=== PATIENT | female | born 1955 | race Caucasian/White ===

== ENCOUNTER 2019-01-15 07:28 | Day surgery (SDC) | payer OTHER ==
[~2019-01-15 07:28] MED LIST: Ropivacaine 49.25 ML, Ketorolac 30 MG, EPINEPHrine 0.5 MG, cloNIDine 80 MCG, Sodium Chl... INJECT SCH; Scopolamine 1.5 MG Transdermal Patch ONE
[2019-01-15] MEDS ORDERED: ePHEDrine 50 MG/ML SDV IV ONE (07:29)
[2019-01-15] MEDS ORDERED: Midazolam 1 MG/ML 2 ML SDV IV ONE (07:29)
[2019-01-15] MEDS ORDERED: fentaNYL 100 MCG/2 ML SDV IV ONE (07:29)
[2019-01-15] MEDS ORDERED: Propofol 200 MG/20 ML SDV IV ONE (07:29)
[2019-01-15] MEDS ORDERED: Ondansetron 4 MG/2 ML SDV IVPUSH ONE (07:29)
[2019-01-15] MEDS ORDERED: Ropivacaine 0.5% 5 MG/ML 30 ML SDV NERVRT ONE (07:29)
[2019-01-15] MEDS ORDERED: Lidocaine 2% 100 MG/5 ML Syringe IVPUSH ONE (07:29)
[2019-01-15] MEDS ORDERED: Lactated Ringers 1,000 ML IV ONE (07:29)
[2019-01-15] MEDS ORDERED: Lactated Ringers 1,000 ML IV SCH (07:30)
[2019-01-15] MEDS ORDERED: Scopolamine 1.5 MG Transdermal Patch TRDERM ONE (07:35)
[2019-01-15] MEDS ORDERED: Gabapentin 300 MG Cap PO ONE (08:00)
[2019-01-15] MEDS ORDERED: Acetaminophen 500 MG Tab PO ONE (08:00)
[2019-01-15] MEDS ORDERED: ceFAZolin 2 GM in Premix Bag 1 BAG IV ONE (08:45)
[2019-01-15] MEDS ORDERED: Ropivacaine 49.25 ML, Ketorolac 30 MG, EPINEPHrine 0.5 MG, cloNIDine 80 MCG, Sodium Chl... INJECT SCH ×5 (08:45)
[2019-01-15] MEDS ORDERED: Tranexamic Acid 3,000 MG, Sodium Chloride 0.9% 100 ML IRR ONE ×2 (09:00)
--- NOTE | 2019-01-15 10:23 | PCM.OPNOTE ---
- General Post-Op/Procedure Note Date of Surgery/Procedure: 01/15/19 Operative Procedure(s): left medial pka Pre Op Diagnosis: left knee primary oa Post-Op Diagnosis: same Anesthesia Technique: Combo Spinal/Epidural, MAC Primary Surgeon: Nayan Manley Anesthesia Provider: Fernando Thomson Price Clerk: Halina Edwards EBL in mLs: 50 Complications: none Condition: Good
[2019-01-15] MEDS ORDERED: Naloxone 0.4 MG/ML SDV IVPUSH PRN (10:49)
[2019-01-15] MEDS ORDERED: Bisacodyl 5 MG Tab PO PRN (10:49)
[2019-01-15] MEDS ORDERED: Ondansetron 4 MG/2 ML SDV IVPUSH PRN (10:49)
[2019-01-15] MEDS ORDERED: Sennosides 8.6 MG Tab PO PRN (10:49)
[2019-01-15] MEDS ORDERED: Magnesium Hydroxide 400 MG/5 ML Susp 30 ML Cup PO PRN (10:49)
[2019-01-15] MEDS ORDERED: diphenhydrAMINE 50 MG/ML SDV IVPUSH PRN (10:49)
[2019-01-15] MEDS ORDERED: traMADol 50 MG Tab PO PRN (10:49)
[2019-01-15] MEDS ORDERED: Morphine 2 MG/ML Syringe IVPUSH PRN (10:49)
[2019-01-15] MEDS ORDERED: Docusate Sodium 100 MG Cap PO PRN (10:49)
[2019-01-15] MEDS ORDERED: Zolpidem 5 MG Tab PO PRN (10:49)
--- NOTE | 2019-01-15 11:56 | PCM.SN ---
- Free Text/Narrative Note: ANESTHESIA ACUTE PAIN SERVICE Date: 01/15/2019 Time: 1111 to 1122 Preoperative Dx: Left Knee DJD with Pain Postoperative Rx: Left Partial Knee Arthroplasty Surgeon and the Patient are requesting postoperative pain control. Procedure: Left Adductor Canal Block with Ultrasound [U/S] Guidance in PACU. Risks and benefits discussed with her and her including block failure. They wish to proceed and a consent, after all questions were answered, was obtained. Monitors: NIBP, HR, and SpO2. Vitals: See nursing notes. Sedation: None. She was completely awake and alert throughout the procedure. She is supine with her left leg in a frog-leg position. Preprocedure U/S scan was done locating the left Femoral Artery and the Sortorius Muscle. I then prepped the insertion site with a single ChloraPrep swab and allowed it to dry. The spinal was still working so no skin infiltration was needed. Using the U/S , under direct visualization of the 20 G 4" Stimuplex Ultra 360 Insulated Echogenic Needle, I inserted it and followed the needle to a good position next to the Femoral Artery and below the Sartorius. The depth measured 5-6 cm. Under U/S visualization, the injection of 20 ml's of .5% Naropin was given in divided doses with negative aspiration for blood. She tolerated this well with no local complications. She is having bilateral gross leg movements with no pain in the left knee. The spinal is resolving quickly. Documentation: Please see the PAC System for images in Radiology. Thank you. JOSE ALBERTO Xiong CRNA
[2019-01-15] MEDS: Ketorolac 30 MG/ML SDV IVPUSH SCH ×2 (12:38→19:36)
[2019-01-15] MEDS: Sodium Chloride 0.9% 10 ML Syringe FLUSH PRN ×4 (12:45→19:41)
--- NOTE | 2019-01-15 13:04 | CR ---
INDICATION: Postop. LEFT KNEE: Frontal and lateral views of the left knee were obtained postop, 05/28, and compared with 06/02/18 preop, revealing interval placement of a medial hemiarthroplasty, which appears to be in good position and alignment, without evidence of a complicating process. Typical air is noted in the joint space. Skin clips are noted anteriorly. IMPRESSION: Satisfactory appearance postop medial hemiarthroplasty left knee. JACQUES
--- NOTE | 2019-01-15 15:18 | US ---
INDICATION: Vascular guidance for abductor canal nerve block. ULTRASOUND GUIDANCE FOR ABDUCTOR CANAL NERVE BLOCK: Ultrasonic images times two were obtained for localization for abductor canal nerve block in the left mid thigh. MTDD
--- NOTE | 2019-01-15 16:13 | OR ---
DATE OF OPERATION: 01/15/2019 SURGEON: Nayan Manley DO PREOPERATIVE DIAGNOSIS: Left knee primary osteoarthritis. POSTOPERATIVE DIAGNOSIS: Left knee primary osteoarthritis. PROCEDURE: Left knee partial knee arthroplasty, medial compartment. MELTING FURNACE SKIMMER: Halina Edwards NP. Nurse practitioner, Halina Edwards NP, played an essential role in assisting in this case, helping to position the patient, retract structures as needed, as well as suturing and cutting sutures as indicated. Her presence improved patient's safety and decreased operative time. ANESTHESIA: Spinal plus conscious sedation. FLUID: Lactated Ringer's solution. ESTIMATED BLOOD LOSS: 50 mL. COMPLICATIONS: None. SPECIMEN: None. DISCHARGE DISPOSITION: Stable to PACU. INSTRUMENTATION: DePuy Sigma knee with size-3 femoral component, size-3 tibia, and size-3 7-mm polyethylene insert. INDICATION FOR THE PROCEDURE: The patient is well known to me. She had failed nonoperative treatment. She had [id number] deformity, which was confirmed on radiographs. Risks and benefits of the procedure were explained to the patient and informed consent was obtained. DETAILS OF PROCEDURE: The patient was seen preoperatively by myself and the Anesthesia staff in the preoperative holding area, where the operative site was marked. She was brought to the operative suite by the Anesthesia staff, where spinal sedation plus conscious sedation were administered. A sterile Carbone was placed. A well-padded tourniquet was placed on the left thigh. All extremities were found to be well padded. The right lower extremity was placed into a stirrup. The left lower extremity was slightly flexed and placed into a thigh masterson. The left lower extremity was then prepped and draped in a sterile manner. Time-out was called identifying the correct patient, the correct procedure, the correct site, and that antibiotics had been begun within appropriate period of time. An incision was made medial to the superior pole of the patella, going down to the medial aspect of the tibial tubercle. A medial parapatellar arthrotomy was then made. Bleeding was controlled with Bovie electrocautery. Gelpis were used for retraction. The medial proximal tibia was then exposed using Bovie electrocautery. Infrapatellar fat pad was removed. The anterior portion of the medial meniscus was removed. An extramedullary tibial guide with 2-mm stylus setting was used, and the guide was pinned in place. A vertical cut was made in line with the ASIS on the medial side of the medial tibial spine and carried to the back of the proximal tibia. I then made my horizontal cut using a saw and then protecting the medial collateral ligament with a sharp Hohmann at all times. We then removed the guide and then used an osteotome to remove the proximal tibia fragment, which measured to 4. I then was able to insert a #7 LolliPOP in both flexion and extension. Then, I was able to max the midline of the distal femur using the LolliPOP. We then brought the knee out in extension and used my distal femoral cutting guide, pinned this in place and made my distal femoral cut. I then removed that distal femoral bone that had been cut and then applied a #3 cutting guide. I had marked the midline in flexion and extension. I pinned this in place and then made my three cuts. After this had been accomplished, I placed my #3 trial, which appeared to be in good position. I then removed the #3 trial and then applied my tibial fin cutter. I then pinned this in place and then kept in place with a lamina alarm signal operator and then gouged out my fin. I confirmed that this was appropriately gouged using a hockey-stick apparatus and then drilled my lugs. Please note, I also drilled my lugs for my femoral component for that to fit into. I then removed all of my components and then copiously irrigated with saline and placed some TXA. I then cemented all of my components in place and, while cementing, I placed a 3-mm LolliPOP. I did end up using a 3 tibia because I thought the 4 was too wide. After cement had dried, I let down the tourniquet to 42 minutes. The tourniquet was placed up during the beginning of the case. The tourniquet was raised to 300 mmHg, after exsanguinating the left lower extremity. Continuing on, after the cement had dried and I took care of any extra cement that was present and irrigated, I placed my final polyethylene insert, which was a size-3 7 mm. This provided excellent stability throughout range of motion. We then placed some more TXA and then applied our periarticular injection and then irrigated with Betadine-infused irrigation. We placed two #5 [id number] Ethibond sutures proximal and distal to the patella, followed by #1 STRATAFIX through the parapatellar arthrotomy, followed by a #1 STRATAFIX subcutaneous suture, followed by skin josh, followed by Betadine-soaked Adaptic dressing, sterile sponges, and Delano wrap. The patient was then allowed to awaken from conscious sedation and transferred to the PACU in a stable condition. /[id number] SEEMA/LESLY
[2019-01-15] MEDS: Acetaminophen/oxyCODONE 325-5 MG Tab PO PRN (16:19)
[2019-01-15] MEDS: ceFAZolin 2 GM in Premix Bag 1 BAG IV SCH (16:32)
[2019-01-15] MEDS: Famotidine 20 MG Tab PO SCH (21:01)
[2019-01-16] MEDS: ceFAZolin 2 GM in Premix Bag 1 BAG IV SCH ×2 (01:14→10:00)
[2019-01-16] MEDS: Acetaminophen/oxyCODONE 325-5 MG Tab PO PRN ×3 (01:15→12:10)
[2019-01-16] MEDS: Sodium Chloride 0.9% 10 ML Syringe FLUSH PRN ×2 (07:59→10:00)
[2019-01-16] MEDS: Famotidine 20 MG Tab PO SCH (08:01)
--- NOTE | 2019-01-16 08:57 | PCM.DCSUM1 ---
Discharge Summary - Hospital Course HPI Initial Comments: 63 yo female left knee primary oa Diagnosis: Stroke: No - Discharge Data Discharge Date: 01/16/19 Discharge Disposition: Home, Self-Care 01 Condition: Good - Discharge Diagnosis/Problem(s) (1) Primary osteoarthritis of left knee SNOMED Code(s): 293593799282654, [id number] ICD Code: M17.12 - UNILATERAL PRIMARY OSTEOARTHRITIS, LEFT KNEE Status: Acute Current Visit: Yes - Patient Summary/Data Operative Procedure(s) Performed: left medial pka Complications: none Consults: Consultations 01/15/19 10:49 Respiratory Care Assess and Treatment [CONS] Routine Comment: Physician Instructions: Post-op Pneumonia Prevention 01/15/19 15:00 OT Evaluation and Treatment [CONS] Routine Please Evaluate and Treat. OT Reason for Consult: Strengthening This query below is only for informational purposes and is not editable. Admission Diagnosis/Problem: Knee joint operation PT Evaluation and Treatment [CONS] Routine Please Evaluate and Treat. PT Reason for Consult: Strengthening This query below is only for informational purposes and is not editable. Admission Diagnosis/Problem: Knee joint operation - Patient Instructions Diet: Usual Diet as Tolerated Activity: Apply Ice, As Tolerated, Full Weight Bearing, No Strenuous Activities Driving: Do Not Drive Showering/Bathing: May Shower Wound/Incision Care: Keep Operative Site/Wound Site Clean and Dry Wound/Incision, Other: remove aquacell dressing on Tuesday, then clean dressing daily Notify Provider of: Fever, Increased Pain, Swelling and Redness, Drainage, Nausea and/or Vomiting - Discharge Plan *PRESCRIPTION DRUG MONITORING PROGRAM REVIEWED*: Yes *COPY OF PRESCRIPTION DRUG MONITORING REPORT IN PATIENT SHOAIB: No Prescriptions/Med Rec: Acetaminophen/oxyCODONE [Percocet 325-5 MG] 1 tab PO Q6HR PRN #56 tablet PRN Reason: Pain (Moderate 4-6) Aspirin [Ecotrin] 325 mg PO DAILY #21 tab.ec Home Medications: Home Meds Acetaminophen/oxyCODONE [Percocet 325-5 MG] 1 tab PO Q6HR PRN #56 tablet [Rx] Aspirin [Ecotrin] 325 mg PO DAILY #21 tab.ec 01/16/19 [Rx] Oxygen Therapy Mode: Room Air Patient Handouts: Total Knee Replacement, Care After, [id number], Fall Prevention in Hospitals, Adult, Venous Thromboembolism Prevention, Community- Acquired Pneumonia, Adult, [id number] Referrals: Nayan Manley DO [Physician] - 02/07/19 9:15 am () - Discharge Summary/Plan Comment DC Time >30 min.: No - General Info Date of Service: 01/16/19 Functional Status: Reports: Pain Controlled, Tolerating Diet, Ambulating, Urinating - Review of Systems General: Reports: No Symptoms HEENT: Reports: No Symptoms Pulmonary: Reports: No Symptoms Cardiovascular: Reports: No Symptoms Gastrointestinal: Reports: No Symptoms Genitourinary: Reports: No Symptoms Musculoskeletal: Reports: Leg Pain, Joint Pain, Joint Swelling Skin: Reports: No Symptoms Neurological: Reports: No Symptoms Psychiatric: Reports: No Symptoms - Patient Data Vitals - Most Recent: Last Vital Signs Temp 97.5 F 01/16/19 07:20 Pulse 55 L 01/16/19 07:20 Resp 18 01/16/19 07:20 BP 112/62 01/16/19 07:20 Pulse Ox 96 01/16/19 07:20 Weight - Most Recent: 195 lb I&O - Last 24 hours: Intake & Output 01/15/19 01/16/19 01/16/19 22:59 06:59 14:59 Intake Total 1850 50 200 Output Total 975 350 Balance 875 -300 200 Lab Results - Last 24 hrs: Laboratory Results - last 24 hr 01/16/19 01/16/19 Range/Units 05:55 05:55 WBC 7.7 (4.5-12.0) X10-3/uL RBC 4.01 (3.23-5.20) x10(6)uL Hgb 12.7 (11.5-15.5) g/dL Hct 37.1 (30.0-51.3) % MCV 92.6 (80-96) fL MCH 31.7 (27.7-33.6) pg MCHC 34.2 (32.2-35.4) g/dL RDW 12.2 (11.5-15.5) % Plt Count 159 (125-369) X10(3)uL MPV 9.1 (7.4-10.4) fL Neut % (Auto) 57.6 (46-82) % Lymph % (Auto) 31.7 (13-37) % [place] % (Auto) 8.9 (4-12) % Eos % (Auto) 2 (1.0-5.0) % Baso % (Auto) 0 (0-2) % Neut # (Auto) 4.4 (1.6-8.3) # Lymph # (Auto) 2.5 (0.6-5.0) # [place] # (Auto) 0.7 (0.0-1.3) # Eos # (Auto) 0.1 (0.0-0.8) # Baso # (Auto) 0.0 (0.0-0.2) # Sodium 142 (135-145) mmol/L Potassium 4.0 (3.5-5.3) mmol/L Chloride 105 (100-110) mmol/L Carbon Dioxide 28 (21-32) mmol/L BUN 10 (7-18) mg/dL Creatinine 0.9 (0.55-1.02) mg/dL Est Cr Clr Drug Dosing 50.60 mL/min Estimated GFR (MDRD) > 60 (>60) BUN/Creatinine Ratio 11.1 (9-20) Glucose 94 (80-116) mg/dL Calcium 8.6 (8.6-10.2) mg/dL Total Bilirubin 0.4 (0.1-1.3) mg/dL AST 33 H (5-25) IU/L ALT 48 H (12-36) U/L Alkaline Phosphatase 38 L (56-112) IU/L Total Protein 6.4 (6.0-8.0) g/dL Albumin 3.1 L (3.2-4.6) g/dL Globulin 3.3 g/dL Albumin/Globulin Ratio 0.9 Med Orders - Current: Current Medications Aspirin (Ecotrin) 325 mg PO DAILY [facility] Last Admin: 01/16/19 08:02 Dose: 325 mg Bisacodyl (Dulcolax) 10 mg PO DAILY PRN PRN Reason: Constipation Diphenhydramine HCl (Benadryl) 25 mg IVPUSH Q4H PRN PRN Reason: Itching Docusate Sodium (Colace) 100 mg PO BID PRN PRN Reason: Constipation Famotidine (Pepcid) 20 mg PO BID [facility] Last Admin: 01/16/19 08:01 Dose: 20 mg Cefazolin Sodium/Dextrose 2 gm (/ Premix) 50 mls @ 100 mls/hr IV Q8H HUGO Stop: 01/16/19 09:29 Last Admin: 01/16/19 01:14 Dose: 100 mls/hr Magnesium Hydroxide (Milk Of Magnesia) 30 ml PO BID PRN PRN Reason: Constipation Morphine Sulfate (Morphine) 2 mg IVPUSH Q2H PRN PRN Reason: Breakthrough Pain Naloxone HCl (Narcan) 0.1 mg IVPUSH ONETIME PRN PRN Reason: Oversedation Ondansetron HCl (Zofran) 4 mg IVPUSH Q4H PRN PRN Reason: Nausea/Vomiting Last Admin: 01/16/19 07:59 Dose: 4 mg Oxycodone/Acetaminophen (Percocet 325-5 Mg) 2 tab PO Q4H PRN PRN Reason: Pain (moderate 4-6) Last Admin: 01/16/19 05:56 Dose: 2 tab Senna (Senna) 8.6 mg PO BID PRN PRN Reason: Constipation Sodium Chloride (Saline Flush) 10 ml FLUSH ASDIRECTED PRN PRN Reason: Keep Vein Open Last Admin: 01/16/19 07:59 Dose: 10 ml Tramadol HCl (Ultram) 100 mg PO Q6H PRN PRN Reason: Pain (mild 1-3) Zolpidem Tartrate (Ambien) 5 mg PO BEDTIME PRN PRN Reason: Sleep Discontinued Medications Acetaminophen (Tylenol Extra Strength) 1,000 mg PO ONETIME ONE Stop: 01/15/19 08:01 Last Admin: 01/15/19 08:29 Dose: 1,000 mg Ropivacaine 49.25 ml/Ketorolac Tromethamine 30 mg/Epinephrine HCl 0.5 mg/ Clonidine HCl 80 mcg/ Sodium Chloride 48.45 ml 0 ml INJECT ASDIRECTED HUGO Stop: 01/15/19 10:00 Last Admin: 01/15/19 09:35 Dose: 100 syringe Tranexamic Acid 3,000 mg/ (Sodium Chloride 100 ml) 0 mg IRR ONETIME ONE Stop: 01/15/19 09:01 Last Admin: 01/15/19 09:38 Dose: 100 irr Gabapentin (Neurontin) 300 mg PO ONETIME ONE Stop: 01/15/19 08:01 Last Admin: 01/15/19 08:29 Dose: 300 mg Cefazolin Sodium/Dextrose 2 gm (/ Premix) 50 mls @ 100 mls/hr IV ONETIME ONE Stop: 01/15/19 09:14 Last Admin: 01/15/19 08:41 Dose: 100 mls/hr Lactated Ringer's (Ringers, Lactated) 1,000 mls @ 125 mls/hr IV ASDIRECTED [facility] Last Admin: 01/15/19 08:25 Dose: 125 mls/hr Ketorolac Tromethamine (Toradol) 30 mg IVPUSH Q8H [facility] Stop: 01/15/19 19:31 Last Admin: 01/15/19 19:36 Dose: 30 mg Scopolamine (Transderm-Scop) Confirm Administered Dose 1.5 mg .ROUTE .STK-MED ONE Stop: 01/15/19 07:27 Last Admin: 01/15/19 07:37 Dose: Not Given Scopolamine (Transderm-Scop) 1.5 mg TRDERM ONETIME ONE Stop: 01/15/19 07:36 Last Admin: 01/15/19 08:26 Dose: 1.5 mg - Exam General: Reports: Alert, Oriented, Cooperative, Mild Distress HEENT: Reports: Pupils Equal, Pupils Reactive, Mucous Membr. Moist/[place] Neck: Reports: Supple, Trachea Midline Lungs: Reports: Clear to Auscultation, Normal Respiratory Effort Extremities: Joint Swelling, Leg Pain, Limited Range of Motion Skin: Reports: Warm, Dry, Intact Wound/Incisions: Reports: Healing Well, Drainage Neurological: Reports: No New Focal Deficit Psy/Mental Status: Reports: Alert, Normal Affect, Normal Mood Discharge Operative/Procedures - Procedures Performed Operations: left medial pka
[2019-01-16] MEDS ORDERED: Aspirin 325 MG Tab.EC PO SCH (09:00)
== END 2019-01-16 13:00 | disposition home or self-care (01) ==
LOC: FB.SDS 07:28 → FB.MS 11:30 → FB.SDS 01-16 13:00
PROVIDERS: ATTEND Orthopaedic Surgery
DX: M17.12 Unilateral primary osteoarthritis, left knee (principal); E66.9 Obesity, unspecified; Z68.35 Body mass index [BMI] 35.0-35.9, adult; E78.2 Mixed hyperlipidemia; K21.9 Gastro-esophageal reflux disease without esophagitis; Z79.899 Other long term (current) drug therapy
CPT/HCPCS: 36415; 73560-LT; 76937; 80053; 85025; 86850; 86900; 86901; 94150; 97116-GP; 97161-GP; A9270-GY; C1713; C1776; J0171; J0690; J0735; J1885; J2001; J2250; J2405; J2704; J2795; J3010; J7030; J7050; J7120

== ENCOUNTER 2019-06-30 01:03 | Emergency (ER) | payer OTHER ==
[2019-06-30] MEDS: Sodium Chloride 0.9% 1,000 ML IV SCH ×2 (01:20→02:15)
[2019-06-30] MEDS ORDERED: Ondansetron 4 MG/2 ML SDV IVPUSH ONE (01:22)
[2019-06-30] MEDS ORDERED: Pantoprazole 40 MG Vial IVPUSH ONE (01:22)
[2019-06-30] MEDS ORDERED: Meclizine 25 MG Tab PO ONE ×2 (01:22→03:35)
[2019-06-30] MEDS ORDERED: Sodium Chloride 0.9% 500 ML IV ONE (01:23)
--- NOTE | 2019-06-30 02:10 | EDM.PDOC ---
ED HPI GENERAL MEDICAL PROBLEM - General Stated Complaint: vommiting Time Seen by Provider: 06/30/19 01:03 Source of Information: Reports: Patient, Family History Limitations: Reports: No Limitations - History of Present Illness INITIAL COMMENTS - FREE TEXT/NARRATIVE: 63 y.o.w.f came with e family to the ed due to dizziness with any kind of movement of her head. Pt woke up with those symptoms at about 11 pm. No Trauma. Pt was nauseated and vomited multiple times [employer]. Pt ate out a few days ago, food did not taste well. No H/A.The Room "is spinning". Pt has difficulty ambulating because of Dizziness. No C/P no SOB or any other acute med issues. Pt denied a h/o Vertigo. BP 156/75 RR 16 Pulse ox 100% Temp 36.9 pulse Onset Date: 06/29/19 Onset Time: 17:50 Duration: Hour(s):, Intermittent Location: Reports: Head Quality: Reports: Other (Dizziness) Severity: Moderate Improves with: Reports: Rest Worsens with: Reports: Movement Context: Reports: Other Associated Symptoms: Reports: Other (nausea, upper GI discomfort. ) - Related Data Allergies Allergy/AdvReac Type Severity Reaction Status Date / Time No Known Allergies Allergy Verified 06/30/19 03:53 Home Meds: Home Meds Acetaminophen/Diphenhydramine [Acetaminophen Pm Caplet] 1 tab PO BEDTIME [History] Famotidine [Pepcid AC] 10 mg PO DAILY 06/30/19 [History] Loperamide [Imodium] 2 mg PO ASDIRECTED 06/30/19 [History] Meclizine [Antivert] 25 mg PO Q6H PRN #12 tab 06/30/19 [Rx] Ondansetron [Zofran ODT] 4 mg PO Q6H PRN #14 tab.dis 06/30/19 [Rx] Past Medical History Gastrointestinal History: Reports: GERD [employer] History: Reports: Musculoskeletal History: Reports: Arthritis - Past Surgical History GI Surgical History: Reports: Cholecystectomy Social & Family History - Caffeine Use Caffeine Use: Reports: Coffee, Soda ED ROS GENERAL - Review of Systems Review Of Systems: See Below Constitutional: Reports: No Symptoms HEENT: Reports: No Symptoms Respiratory: Reports: No Symptoms Cardiovascular: Reports: No Symptoms Endocrine: Reports: No Symptoms GI/Abdominal: Reports: Nausea : Reports: No Symptoms Musculoskeletal: Reports: No Symptoms Skin: Reports: No Symptoms Neurological: Reports: Dizziness Psychiatric: Reports: No Symptoms Hematologic/Lymphatic: Reports: No Symptoms Immunologic: Reports: No Symptoms ED EXAM, GI/ABD - Physical Exam Exam: See Below Exam Limited By: No Limitations General Appearance: Alert, WD/WN, Mild Distress Eyes: Bilateral: Nystagmus Ears: Normal External Exam Nose: Normal Inspection Throat/Mouth: Normal Inspection Head: Atraumatic, Normocephalic Neck: Normal Inspection, Supple, Non-Tender Respiratory/Chest: No Respiratory Distress, Lungs Clear, Normal Breath Sounds Cardiovascular: Normal Peripheral Pulses, Regular Rate, Rhythm, No Edema, No Gallop GI/Abdominal Exam: Normal Bowel Sounds, Soft, No Organomegaly, Tender ( epigastric tenderness) (Female) Exam: Deferred Rectal (Female) Exam: Deferred Back Exam: Normal Inspection Extremities: Normal Inspection, Normal Range of Motion, Non-Tender Neurological: Alert, Oriented, CN II-XII Intact, Normal Cognition, No Motor/ Sensory Deficits, Other (is walking slowly due to dizziness) Psychiatric: Normal Affect, Normal Mood Skin Exam: Warm, Dry, Intact, Normal Color, No Rash Lymphatic: No Adenopathy EKG INTERPRETATION EKG Date: 06/30/19 Time: 03:10 Rhythm: NSR Rate (Beats/Min): 97 [place]: Normal P-Wave: Present QRS: Normal ST-T: Normal QT: Normal Comparison: NA - No Prior EKG Course - Vital Signs Text/Narrative:: 63 y.o.w.f came with e family to the ed due to dizziness with any kind of movement of her head. Pt woke up with those symptoms at about 11 pm. No Trauma. Pt was nauseated and vomited multiple times [employer]. Pt ate out a few days ago, food did not taste well. No H/A.The Room "is spinning". Pt has difficulty ambulating because of Dizziness. No C/P no SOB or any other acute med issues. Pt denied a h/o Vertigo. BP 156/75 RR 16 Pulse ox 100% Temp 36.9 pulse PE: WNWD W F with bilt non rotating nystagmus. Dizzy Imaging: CT head NAD Labs: CBC, BMP Neg Impression: Benign paroxysmal positional Vertigo, Dehydration Tx: Antivert, Zofran, NS Reexam: Improved, pt was able to ambulate well Plan: D/C with instructions Last Recorded V/S: Last Vital Signs Temp 36.8 C 06/30/19 02:21 Pulse 100 06/30/19 02:21 Resp 14 06/30/19 02:21 BP 154/74 H 06/30/19 02:21 Pulse Ox 100 06/30/19 02:21 Orthostatic Blood Pressure [ 142/78 Standing] Orthostatic Blood Pressure [ 148/73 Sitting] Orthostatic Blood Pressure [ 162/74 Supine] - Orders/Labs/Meds Orders: Active Orders 24 hr Category Date Time Status EKG Documentation Completion [RC] ASDIRECTED Care 06/30/19 02:54 Active Head wo Cont [CT] Stat Exams 06/30/19 02:11 Ordered EKG 12 Lead [EK] Routine Ther 06/30/19 02:54 Ordered Labs: Laboratory Tests 06/30/19 06/30/19 06/30/19 Range/Units 01:35 01:35 01:35 WBC 7.6 (4.5-12.0) X10-3/uL RBC 4.25 (3.23-5.20) x10(6)uL Hgb 13.1 (11.5-15.5) g/dL Hct 39.1 (30.0-51.3) % MCV 92.1 (80-96) fL MCH 30.8 (27.7-33.6) pg MCHC 33.4 (32.2-35.4) g/dL RDW 12.5 (11.5-15.5) % Plt Count 191 (125-369) X10(3)uL MPV 9.3 (7.4-10.4) fL Neut % (Auto) 65.4 (46-82) % Lymph % (Auto) 27.0 (13-37) % [place] % (Auto) 6.6 (4-12) % Eos % (Auto) 0 L (1.0-5.0) % Baso % (Auto) 1 (0-2) % Neut # (Auto) 5.0 (1.6-8.3) # Lymph # (Auto) 2.1 (0.6-5.0) # [place] # (Auto) 0.5 (0.0-1.3) # Eos # (Auto) 0.0 (0.0-0.8) # Baso # (Auto) 0.0 (0.0-0.2) # Sodium 142 (135-145) mmol/L Potassium 3.6 (3.5-5.3) mmol/L Chloride 106 (100-110) mmol/L Carbon Dioxide 24 (21-32) mmol/L BUN 8 (7-18) mg/dL Creatinine 0.7 (0.55-1.02) mg/dL Est Cr Clr Drug Dosing TNP Estimated GFR (MDRD) > 60 (>60) BUN/Creatinine Ratio 11.4 (9-20) Glucose 109 (80-116) mg/dL Calcium 8.9 (8.6-10.2) mg/dL Magnesium (1.8-2.5) mg/dL Total Bilirubin 0.5 (0.1-1.3) mg/dL Direct Bilirubin 0.11 (0.10-0.20) mg/dL AST 48 H D (5-25) IU/L ALT 69 H D (12-36) U/L Alkaline Phosphatase 45 L (56-112) IU/L Total Protein 7.2 (6.0-8.0) g/dL Albumin 3.4 (3.2-4.6) g/dL 06/30/19 Range/Units 01:35 WBC (4.5-12.0) X10-3/uL RBC (3.23-5.20) x10(6)uL Hgb (11.5-15.5) g/dL Hct (30.0-51.3) % MCV (80-96) fL MCH (27.7-33.6) pg MCHC (32.2-35.4) g/dL RDW (11.5-15.5) % Plt Count (125-369) X10(3)uL MPV (7.4-10.4) fL Neut % (Auto) (46-82) % Lymph % (Auto) (13-37) % [place] % (Auto) (4-12) % Eos % (Auto) (1.0-5.0) % Baso % (Auto) (0-2) % Neut # (Auto) (1.6-8.3) # Lymph # (Auto) (0.6-5.0) # [place] # (Auto) (0.0-1.3) # Eos # (Auto) (0.0-0.8) # Baso # (Auto) (0.0-0.2) # Sodium (135-145) mmol/L Potassium (3.5-5.3) mmol/L Chloride (100-110) mmol/L Carbon Dioxide (21-32) mmol/L BUN (7-18) mg/dL Creatinine (0.55-1.02) mg/dL Est Cr Clr Drug Dosing Estimated GFR (MDRD) (>60) BUN/Creatinine Ratio (9-20) Glucose (80-116) mg/dL Calcium (8.6-10.2) mg/dL Magnesium 1.9 (1.8-2.5) mg/dL Total Bilirubin (0.1-1.3) mg/dL Direct Bilirubin (0.10-0.20) mg/dL AST (5-25) IU/L ALT (12-36) U/L Alkaline Phosphatase (56-112) IU/L Total Protein (6.0-8.0) g/dL Albumin (3.2-4.6) g/dL Meds: Medications Discontinued Medications Generic Name Dose Route Start Last Admin Trade Name Eliseoq PRN Reason Stop Dose Admin Sodium Chloride 500 mls @ 999 mls/hr 06/30/19 01:23 06/30/19 04:05 Normal Saline IV 06/30/19 01:53 Not Given .BOLUS ONE Sodium Chloride 1,000 mls @ 999 mls/hr 06/30/19 02:30 06/30/19 02:15 Normal Saline IV 999 mls/hr ASDIRECTED HUGO Administration Meclizine HCl 25 mg 06/30/19 01:22 06/30/19 02:25 Antivert PO 06/30/19 01:23 25 mg ONETIME ONE Administration Meclizine HCl 25 mg 06/30/19 03:35 06/30/19 03:41 Antivert PO 06/30/19 03:36 25 mg ONETIME ONE Administration Ondansetron HCl 8 mg 06/30/19 01:22 06/30/19 02:30 Zofran IVPUSH 06/30/19 01:23 8 mg ONETIME ONE Administration Pantoprazole Sodium 40 mg 06/30/19 01:22 06/30/19 02:30 Protonix Iv IVPUSH 06/30/19 01:23 40 mg ONETIME ONE Administration Departure - Departure Time of Disposition: 05:03 Disposition: Home, Self-Care 01 Condition: Good Clinical Impression: Vertigo, Dehydration - Discharge Information Prescriptions: Meclizine [Antivert] 25 mg PO Q6H PRN #12 tab PRN Reason: dizzy Ondansetron [Zofran ODT] 4 mg PO Q6H PRN #14 tab.dis PRN Reason: Nausea Instructions: Vertigo, Labyrinthitis, Dizziness Referrals: PCP,None [Primary Care Provider] - Forms: ED Department Discharge Additional Instructions: Please increase water intake, take Antivert and Zofran as recommended, please f/ u, come back if your symptoms get worse acutely - My Orders Last 24 Hours: My Active Orders 06/30/19 02:11 Head wo Cont [CT] Stat 06/30/19 02:54 EKG Documentation Completion [RC] ASDIRECTED EKG 12 Lead [EK] Routine - Assessment/Plan Last 24 Hours: My Active Orders 06/30/19 02:11 Head wo Cont [CT] Stat 06/30/19 02:54 EKG Documentation Completion [RC] ASDIRECTED EKG 12 Lead [EK] Routine
== END 2019-06-30 05:45 | disposition home or self-care (01) ==
LOC: FB.ED 01:03
DX: E86.0 Dehydration (principal); R42 Dizziness and giddiness; Z90.49 Acquired absence of other specified parts of digestive tract; Z79.899 Other long term (current) drug therapy
CPT/HCPCS: 36415; 70450; 80048; 80076; 83735; 85025; 93005; 96361; 96374; 96375; 99285; A9270; C9113; J2405; J7030